=== PATIENT | male | born 1965 | race Caucasian/White ===

== ENCOUNTER 2018-12-31 16:36 | Emergency (ER) | payer BC ==
[2018-12-31 16:56] VITALS: BP 129/84
[2018-12-31] MEDS ORDERED: DOXYcycline CAP(*) 100 MG PO ONE (17:03)
--- NOTE | 2018-12-31 17:11 | ED ---
Skin Complaint - HPI Summary HPI Summary: 53 yr old male with tick bite to the back of the right thigh. Tick on for less than a day. Not engorged. 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 He pulled off the tick this morning. he has no other complaints. - History of Current Complaint Chief Complaint: [facility] Time Seen by Provider: 12/31/18 16:57 Stated Complaint: TICK BITE Pain Intensity: 0 - Allergy/Home Medications Allergies/Adverse Reactions: Allergies Allergy/AdvReac Type Severity Reaction Status Date / Time No Known Allergies Allergy Verified 12/31/18 16:56 Home Medications: Home Medications Blood Pressure Medication DAILY 12/31/18 [History] PMH/Surg Hx/FS Hx/Imm Hx Cardiovascular History: Reports: Hx Hypertension Respiratory History: Reports: Hx Asthma - seasonal Infectious Disease History: No Infectious Disease History: Denies: Traveled Outside the [place] in Last 30 Days - Family History Known Family History: Positive: None - Social History Occupation: Employed Full-time Alcohol Use: None Substance Use Type: Reports: None Smoking Status (MU): Never Smoked Tobacco Review of Systems Constitutional: Negative Positive: Other - tick bite to the right posterior thigh All Other Systems Reviewed And Are Negative: Yes Physical Exam Triage Information Reviewed: Yes Vital Signs On Initial Exam: Initial Vitals Temp Pulse Resp BP Pulse Ox 98.9 F 68 16 129/84 98 12/31/18 16:51 12/31/18 16:51 12/31/18 16:51 12/31/18 16:51 12/31/18 16:51 Vital Signs Reviewed: Yes Appearance: Positive: Well-Appearing, No Pain Distress Skin: Positive: Other - tick bite posterior right thigh with minimal localized reaction about 1 cm in diameter. No erythema migrans. Head/Face: Positive: Normal Head/Face Inspection Eyes: Positive: EOMI, JOY ENT: Positive: Normal ENT inspection Neck: Positive: Nontender Respiratory/Lung Sounds: Positive: Clear to Auscultation, Breath Sounds Present Cardiovascular: Positive: RRR. Negative: Murmur Abdomen Description: Negative: Distended Musculoskeletal: Positive: Strength/ROM Intact Neurological: Positive: Sensory/Motor Intact, Alert, Oriented to Person Place, Time, CN Intact II-III Psychiatric: Positive: Normal Diagnostics - Vital Signs Vital Signs Temp Pulse Resp BP Pulse Ox 12/31/18 16:51 98.9 F 68 16 129/84 98 - Laboratory Lab Statement: Any lab studies that have been ordered have been reviewed, and results considered in the medical decision making process. Course/Dx - Course Course Of Treatment: 53 yr old with tick bite to the right posterior thigh. Prophylax with doxy 200 mg single dose - Diagnoses Provider Diagnoses: Tick bite Discharge - Sign-Out/Discharge Documenting (check all that apply): Patient Departure All imaging exams completed and their final reports reviewed: No Studies - Discharge Plan Condition: Good Disposition: HOME Patient Education Materials: Tick Bite (ED) Referrals: Angle Stewart PA [Primary Care Provider] - 2 Days - Billing Disposition and Condition Condition: GOOD Disposition: Home
== END 2018-12-31 17:12 | disposition home or self-care (01) ==
LOC: UCCORT 16:36
DX: T63.481A Toxic effect of venom of other arthropod, accidental (unintentional), initial encounter (principal); Y92.9 Unspecified place or not applicable; I10 Essential (primary) hypertension
CPT/HCPCS: 99212; A9270-GY; G0463